=== PATIENT | male | born 1995 | race Caucasian/White ===

== ENCOUNTER 2020-12-01 21:05 | Emergency (ER) | payer OTHER ==
[~2020-12-01] VITALS: Ht 180.3 cm; Wt 61.0 kg
[~2020-12-01 21:05] MED LIST: ADDERALL15 MG OR; AUGMENTIN500 MG OR; SINGULAIR5 MG OR
[2020-12-01 21:53] LABS: HEMATOCRIT 42.4 % (39.0-50.0); IMMATURE GRANULOCYTES 0.1 % (0.0-5.0); MEAN CORPUSCULAR HGB 29.6 pG CALC (26.0-32.0); NEUT# 6.42 thou/uL (1.82-7.42); RED BLOOD COUNT 4.73 mill/uL (4.70-6.10); RED CELL DISTRI WIDTH 11.5 % (11.5-15.5)
[2020-12-01 22:02] LABS: MEAN CELL VOLUME 89.6 fL CALC (80.0-100.0)
[2020-12-01 22:09] LABS: AMYLASE 78 u/l (30-110); BUN 6 mg/dL (9-20); BUN/CREATININE RATIO 6 (12-20 (CALC)); CARBON DIOXIDE 26 mmol/l (22-30); CHLORIDE 104 mmol/l (95-108); CREATININE 1.2 mg/dL (0.7-1.3); GFR > 60 ML/MIN (>=60 (CALC)); GFR FOR AFR.AMER. > 60 ML/MIN (>=60 (CALC)); LIPASE 61 u/l (23-300); SGOT/AST 17 u/l (17-59); SODIUM 141 mmol/l (137-146); TOTAL PROTEIN 8.5 g/dL (6.3-8.2)
[2020-12-01 22:10] LABS: ALKALINE PHOSPHATASE 81 u/l (38-126); ANION GAP 15 (6-22 (CALC)); BILIRUBIN, TOTAL 0.6 mg/dL (0.0-1.4); POTASSIUM 3.7 mmol/l (3.5-5.1)
[2020-12-01 22:20] LABS: ACT PARTIAL THROMBO TIME 25.1 SECONDS (20.0-32.5); INTERNATIONAL NORMALIZED RATIO 1.1 RATIO (0.7-1.3); PROTHROMBIN TIME 11.1 SECONDS (9.0-12.5)
[2020-12-01 22:25] LABS: D-DIMER 0.17 mg/L (0.19-0.60)
[2020-12-01] MEDS ORDERED: TORADOL PO (22:51)
[2020-12-01 22:58] VITALS: BP 120/69
== END 2020-12-01 22:58 | disposition home or self-care (01) | DRG 313 ==
LOC: ED 21:05
PROVIDERS: Family Medicine
DX: R07.89 Other chest pain (principal)